=== PATIENT | male | born 2005 | race Caucasian/White ===

== ENCOUNTER 2025-01-08 01:13 | Emergency (ER) | payer SELFPAY ==
[2025-01-08 01:25] VITALS: BP 136/90; PULSE 82; RESP 20; TEMP 37.2; O2SAT 99
--- NOTE | 2025-01-08 01:28 | PC.NURSE ---
Pt awake alert and oriented Skin pink warm and dry Resp full and easy PT denies toothache states bilateral jaw pain for past few months. Pt states tonight pain worse
--- NOTE | 2025-01-08 02:08 | ED_ITS ---
Discharge Plan Disposition Patient Disposition: Home, Self-Care Condition: Good Prescriptions Prescriptions: New amoxicillin-pot clavulanate 875-125 mg tablet 1 tab PO BID Qty: 20 0RF Referrals Follow up/Referrals: Provider,Referral, [Primary Care Provider] - See instructions Activity Restrictions/Add. Instructions Additional Instructions/Restrictions: You were evaluated in the ER and are appropriate for discharge at this time. Take Tylenol, ibuprofen if needed for pain, do not exceed the recommended dose on the bottle. During water and eat a small snack each time you take these me dications to avoid side effects. Use the provided dental balls. Apply 1 ball to the affected area, 1 hour on, 1 hour off. Do not eat, drink, or sleep with these in place. Take the prescribed antibiotic as directed, do not skip doses, do not stop taking it early. Make an appointment with a dentist for follow-up as soon as possible. Return to the ER with any new, worsening, or otherwise concerning symptoms. Clinical Impressions Clinical Impression: Pain, dental Print Language Print Language: [place] Discharge ED Provider: Luz Marina Davis General Adult HPI General Chief complaint: PAIN Stated complaint: tooth pain Time Seen by Provider: 01/08/25 01:54 Mode of Arrival: Ambulatory Source of Information: Patient Description of Symptoms (Recalled from ER Triage Doc. by RN): bilateral jaw pain for past few months History of Present Illness HPI narrative: 19-year-old male presents to the ER for complaints of jaw pain. Reportedly this has been an ongoing problem but seemed worse today so he came to the ER tonight. Patient presents with his sister who is reportedly his guardian know that the patient's grandparents have . Last time patient saw dentist was in July 2024 for an extraction. He reports he is having pain near the extraction site in the other teeth. [id number] medications have been helping but are no longer helping. Patient denies fevers, chills, chest pain, difficulty swallowing or breathing, no other associated symptoms. Related Data Previous Rx's ?Medication ?Instructions ?Recorded amoxicillin 875 mg-potassium 1 tab PO BID #20 tabs 01/08/25 clavulanate 125 mg tablet Allergies Allergy/AdvReac Type Severity Reaction Status Date / Time No Known Allergies Allergy Verified 01/08/25 01:[address] [facility] Disclaimer: The information contained in this section may have been updated after the patient was seen, as this information can be updated by other users. Social History Smoking Status: Current every day smoker alcohol intake: never current occupational status: other Travel in the last 8 weeks: None ROS Obtained: Yes Systems reviewed as appropriate & no additional complaints except as documented Per HPI Physical Exam General General appearance: alert and in no apparent distress Head Head exam: atraumatic and normocephalic Eye Eye exam: Present PERRL and EOMI ENT ENT exam: Present mucous membranes moist Expanded ENT Exam Mouth exam: Present other (No woodiness of the floor of the mouth, no sublingual or submandibular swelling, no trismus) Teeth exam: Present other (Tooth 19 absent, mild gingival erythema and swelling at the base of tooth 20 with associated tenderness but no abscess) Neck Neck exam: Present normal inspection and full ROM Chest Chest inspection: Present symmetric chest wall rise Respiratory Respiratory exam: Present normal lung sounds bilaterally; Absent respiratory distress, wheezes or stridor Cardiovascular Cardiovascular exam: Present regular rate and normal rhythm Extremities Exam Extremities exam: Present full ROM Neurological Exam Neurological exam: Present alert and oriented X3; Absent motor sensory deficit Psychiatric Psychiatric exam: Present normal affect and normal mood Skin Skin exam: Present warm and dry Medical Decision Making Medical Records Screening: Per USPSTF and CDC recommendations, given the prevalence of disease in our region, it is our hospital?s policy to screen for HIV and viral Hepatitis for all patients aged 18 and over and those with ongoing risk factors. Shreyas Inquiry Pt receiving controlled substance: No Vital Signs: 01/08/25 01:25 Temperature 98.9 F Temperature Source Oral Pulse Rate [Right Brachial] 82 Respiratory Rate 20 Blood Pressure [Right Arm] 136/90 Blood Pressure Mean [Right Arm] 105 Blood Pressure Source [Right Arm] Automatic Cuff Blood Pressure Position [Right Arm] Sitting 02 Sat by Pulse Oximetry 99 Oxygen Delivery Method Room Air Orders (Tests/Meds): ED MEDICATIONS Discontinued Medications Generic Name Dose Route Start Last Admin Trade Name Freq PRN Reason Stop Dose Admin Acetaminophen 1,000 mg 01/08/25 02:02 Acetaminophen 500mg Tab PO 01/08/25 02:03 ONCE ONE Amoxicillin/Clavulanate Potassium 1 each 01/08/25 02:02 Amoxicillin/Clavulanate Potassium 875/125mg Tablet PO 01/08/25 02:03 ONCE ONE Benzocaine/Butamben/Tetracaine HCl 1 gm 01/08/25 02:02 Tetracaine/Benzocaine/Butamben 56 Gm [place] TP 01/08/25 02:03 ONCE ONE Ibuprofen 600 mg 01/08/25 02:02 Ibuprofen 600 Mg Tablet PO 01/08/25 02:03 ONCE ONE Lidocaine HCl 15 ml 01/08/25 02:02 Lidocaine 2% Viscous Roxanne 15ml Udc PO 01/08/25 02:03 ONCE ONE Medical Decision Narrative: In summary, 19-year-old male with no chronic medical conditions, no daily medications, no known drug allergies presents to the ER with complaints of dental pain. On initial evaluation patient is hemodynamically stable, afebrile, resting comfortably. Exam is only notable for mild tenderness along the gingiva of tooth 20 without obvious abscess. Gingiva is erythematous. There is no sublingual or submandibular swelling, no lymphadenopathy, no trismus, no difficulty swallowing or breathing. Differential diagnosis includes but is not limited to dental caries, dental infection, I considered abscess but have no evidence of this, also considered Lawrence's angina but have no evidence of this. Patient received Tylenol, ibuprofen, dental balls, Augmentin in the ER. Augmentin was prescribed and dental balls were provided to the patient. I do not believe labs or imaging are indicated at this time. Patient is appropriate for discharge. Patient and guardian were given instructions on the use of dental balls, [id number] medications, and antibiotics. They were also given instructions to follow-up with a dentist to soon as possible for reevaluation. They were given strict return precautions for the ER. They indicated understanding and the patient was discharged in stable condition. Critical Care Critical Care Time Critical Care Time: No
[2025-01-08] MEDS: ACETAMINOPHEN 500MG TAB 1000 MG PO (02:13)
[2025-01-08] MEDS: LIDOCAINE 2% VISCOUS SOL 15ML UDC 15 ML PO (02:13)
[2025-01-08] MEDS: AMOXICILLIN/CLAVULANATE POTASSIUM 875/125MG TABLET 1 EACH PO (02:13)
[2025-01-08] MEDS: IBUPROFEN 600 MG TABLET PO (02:13)
[2025-01-08] MEDS: TETRACAINE/BENZOCAINE/BUTAMBEN 56 GM SPRAY TP (02:13)
[2025-01-08 02:19] VITALS: BP 140/70; PULSE 80; RESP 20; TEMP 36.8; O2SAT 98
== END 2025-01-08 02:21 | disposition home or self-care (01) ==
PROVIDERS: Emergency Provider Emergency Medicine
DX: K08.89 Other specified disorders of teeth and supporting structures (principal); R68.84 Jaw pain; Z72.0 Tobacco use
CPT/HCPCS: 99283